=== PATIENT | female | born 1945 | race Caucasian/White ===

== ENCOUNTER → 2017-01-07 | Outpatient (CLI) | payer MEDICARE ==
--- NOTE | 2017-01-08 08:37 | US ---
EXAM DESCRIPTION: Abdominal sonogram CLINICAL HISTORY: 71 y/o F, GENERALIZED ABDOMINAL PAIN COMPARISON: None TECHNIQUE: Grayscale sonogram upper abdomen FINDINGS: Aorta is normal in caliber measuring up to 1.8 cm in diameter proximal. Pancreas is hyperechoic fatty in appearance. No definite focal mass identified. The liver is normal in size 13.9 cm in length. Gallbladder thickness is normal less than 2 mm. No gallstones noted. Common bile duct is normal about 4 mm in diameter. The right kidney is normal in length 9.2 cm. There is cortical thinning and lobulation. No focal mass noted. Spleen is normal in size 8.6 cm in length. Left kidney is 9.9 cm in length which is normal. There is increased echogenicity suggesting a degree of medical renal disease with mild cortical thinning. No focal lesion. IMPRESSION: Cortical thinning in both kidneys with slight increased echogenicity suggesting medical renal disease and scarring No acute intra-abdominal process identified. Electronically signed by: Jet Zamora MD 01/08/2017 08:35
== END | disposition home or self-care (01) ==
LOC: US 13:54
PROVIDERS: ATTEND Nurse Practitioner Family
DX: R10.84 Generalized abdominal pain (principal)

== ENCOUNTER → 2017-01-14 | Outpatient (CLI) | payer MEDICARE | END | disposition home or self-care (01) | LOC: GMAM 10:44 | PROVIDERS: ATTEND Family Medicine | DX: R10.13 Epigastric pain (principal) ==

== ENCOUNTER → 2017-01-20 | Outpatient (CLI) | payer MEDICARE ==
--- NOTE | 2017-01-21 08:28 | CT ---
EXAM DESCRIPTION: Abdomen and pelvis CT. CLINICAL HISTORY: Abdominal pain. COMPARISON: May 16, 2011 TECHNIQUE: Oral contrast was administered and volumetric CT was acquired and displayed in multiplanar reconstructions. Note that the sensitivity of this exam is slightly diminished without contrast. FINDINGS: GI: No dilated bowel, free air, or free fluid. Liver: No suspicious lesion. Biliary: No calcified gallstones. Spleen: Unremarkable. Pancreas: Unremarkable. Adrenal Glands: No significant nodularity. Kidneys: Scarring seen within bilateral upper poles of the kidneys. Bilateral ureters are of normal caliber. No hydronephrosis or urolithiasis. Pelvic organs: Patient is status post hysterectomy. Bones: No suspicious lesion/fracture. Lymph nodes: No enlarged lymph nodes. Lung bases: No significant consolidation or nodularity. Vascular: The abdominal aorta demonstrates atherosclerotic disease, but no aneurysm. IMPRESSION: Today's exam demonstrates no acute findings. No evidence of fatty infiltration of the liver. No renal stones. No inflammatory changes within the abdomen or pelvis. Electronically signed by: Marky Cummings MD 01/21/2017 08:26
== END | disposition home or self-care (01) ==
LOC: CT 09:26
PROVIDERS: ATTEND Internal Medicine Gastroenterology
DX: R74.8 Abnormal levels of other serum enzymes (principal)

== ENCOUNTER → 2017-01-21 | Outpatient (CLI) | payer MEDICARE | END | disposition home or self-care (01) | LOC: GMAM 10:40 | PROVIDERS: ATTEND Family Medicine | DX: R10.13 Epigastric pain (principal) ==

== ENCOUNTER → 2017-05-22 | Outpatient (CLI) | payer MEDICARE ==
--- NOTE | 2017-05-22 10:56 | MAM ---
History: Well woman exam. Date of exam: 05/22/2017 Services provided: Bilateral full field digital screening mammography. CAD, the images were reviewed with R2 computer aided detection. FINDINGS: Glandular tissue is scattered glandular contour. Comparison with 2014 study. No dominant mass, architectural distortion or clustered microcalcification. IMPRESSION: Benign exam Recommendation: Routine annual mammography BIRAD CATEGORY: 2 BENIGN Electronically signed by: Vivian Sanford MD 05/22/2017 10:55 AM CDT Workstation: [id number]
== END ==
LOC: MAMMO 08:39
PROVIDERS: ATTEND Family Medicine
DX: Z12.31 Encounter for screening mammogram for malignant neoplasm of breast (principal)

== ENCOUNTER 2017-06-01 22:33 | Emergency (ER) | payer MEDICARE ==
--- NOTE | 2017-06-01 22:39 | ED.PDOC ---
History of Present Illness - General Chief Complaint: General Stated Complaint: rapid heart beat Time Seen by Provider: 06/01/17 22:37 Source: patient Exam Limitations: no limitations - History of Present Illness Initial Comments: Maureen Bolton 72 y/o female stated that she had rapid heart beat tonight shown by her blood pressure monitor which takes bp/pulse;no chest pains,no sob.She has history of hypertension,no heart disease had nuclear stress test done in the past by her moshgiach about 1 1/2 years ago and was normal. Timing/Duration: 1-3 hours Severity: mild Location: other - no chest pains as claimed by patient but feels rapid heart rate Activities at Onset: rest Prior Chest Pain/Cardiac Workup: no prior chest pain, cardiolye scan Improving Factors: nothing Worsening Factors: nothing Nitro Today/Relief: no nitro taken today Aspirin Treatment Today: 81 mg x 1 Associated Symptoms: denies symptoms, headaches - chronic-had brain imaging in the past-normal Allergies/Adverse Reactions: Allergies Iodine Allergy (Verified 06/01/17 23:00) Pantoprazole [From Protonix] Allergy (Verified 06/01/17 23:00) cedinir Allergy (Uncoded 06/01/17 23:00) Home Medications: Ambulatory Orders Aspirin [Aspirin Childrens] 81 mg PO DAILY 09/18/15 Atorvastatin Calcium [Lipitor] 20 mg PO BEDTIME 09/18/15 Folic Acid 1 mg PO DAILY 09/18/15 Furosemide [Lasix] 20 mg PO PRN PRN 09/18/15 Losartan Potassium & Hydrochlo [Losartan Potassium/Hydroc 50-12.5 mg] 1 tab PO DAILY 09/18/15 Metoprolol Tartrate 25 mg PO BID 09/18/15 Multiple Minerals W/ Vitamins [Citracal Plus] 1 tab PO DAILY 09/18/15 Omeprazole [Prilosec Cap] 20 mg PO DAILY 09/18/15 Probiotic Product [Probiotic] 1 tab PO DAILY 09/18/15 Review of Systems - Review of Systems Constitutional: States: no symptoms reported EENTM: States: no symptoms reported Respiratory: States: no symptoms reported Cardiology: States: see HPI Genitourinary: States: no symptoms reported Musculoskeletal: States: no symptoms reported Skin: States: no symptoms reported Neurological: States: no symptoms reported Endocrine: States: no symptoms reported Hematologic/Lymphatic: States: no symptoms reported Past Medical History (General) - Patient Medical History Hx Congestive Heart Failure: No Hx Hypertension: Yes Hx Diabetes: No Hx Other PMH: Yes - melanoma left big toe Surgical History: other - hysterectomy,breast biopsy - Social History Hx Chewing Tobacco Use: No Hx Alcohol Use: No Hx Substance Use: No Hx Substance Use Treatment: No Hx Depression: No Feels Threatened In Home Enviroment: No Feels Threatened In a Relationship: No - Activities of Daily Living Patient Lives Alone: No - Family Medical History - Family History Father Family History: Unknown Hx Family Cancer: Yes - pancreas-mom;prostate dad Physical Exam - Physical Exam General Appearance: Alert, Anxious, No apparent distress Eyes, Ears, Nose, Throat Exam: PERRL/EOMI, normal ENT inspection, TMs normal Neck: non-tender, full range of motion, supple Respiratory: chest non-tender, lungs clear Cardiovascular/Chest: normal peripheral pulses, regular rate, rhythm, no gallop , no murmur Peripheral Pulses: radial,right: 2+, radial,left: 2+ Gastrointestinal/Abdominal: normal bowel sounds, non tender, soft, no organomegaly, no pulsatile mass Extremity: normal range of motion, non-tender, normal inspection, no pedal edema , no calf tenderness, other - left big toe amputation distal phalanx Neurologic: alert, normal mood/affect, oriented x 3 Skin Exam: normal color, warm/dry Lymphatic: no adenopathy Progress - Progress Progress: 06/02/17 00:07 Vital Signs - 8 hr 06/01/17 06/01/17 06/01/17 22:54 23:04 23:10 Temperature 98.9 F Pulse Rate 68 Pulse Rate [ 66 66 Apical] Respiratory 18 Rate Blood Pressure 137/66 [Left Arm] O2 Sat by Pulse 100 Oximetry 06/01/17 23:53 Temperature Pulse Rate Pulse Rate [ 60 Apical] Respiratory 18 Rate Blood Pressure 142/59 [Left Arm] O2 Sat by Pulse Oximetry 06/02/17 00:46 No rapid heart rate noted while patient in the er;Discuss lab result regarding her slightly elevated bun/creatinine that needs to be followed up with her primary md 06/02/17 00:53 - Results/Orders Results/Orders: 06/02/17 00:15 EKG STAT Laboratory Results - last 24 hr 06/01/17 06/01/17 06/01/17 23:00 23:00 23:00 WBC 10.8 RBC 4.04 L Hgb 11.8 L Hct 35.2 L MCV 87.2 MCH 29.2 MCHC 33.6 RDW 13.3 Plt Count 346 MPV 7.6 Absolute Neuts (auto) 7.70 H Absolute Lymphs (auto) 2.30 Absolute Monos (auto) 0.80 Absolute Eos (auto) 0.00 Absolute Basos (auto) 0.00 Neutrophils % 71.0 Lymphocytes % 21.0 Monocytes % 7.5 Eosinophils % 0.3 L Basophils % 0.2 PT 11.0 INR 0.970 PTT (SP) 24.8 L D-Dimer, Quantitative < 230 Sodium 137 Potassium 3.4 L Chloride 101 Carbon Dioxide 27 Anion Gap 12.4 BUN 43 H Creatinine 1.38 H BUN/Creatinine Ratio 31.2 H Random Glucose 141 H Serum Osmolality 287.0 Calcium 9.3 Magnesium 1.8 Total Bilirubin 0.3 Direct Bilirubin < 0.1 Indirect Bilirubin 0.2 AST 23 ALT 18 Alkaline Phosphatase 110 Creatine Kinase 79 CK-MB (CK-2) 1.6 CK-MB (CK-2) % Not Reportable Troponin I < 0.02 B-Natriuretic Peptide 238.0 H* Serum Total Protein 7.2 Albumin 3.9 TSH 1.52 - EKG/XRAY/CT EKG: Sinus - with pac, no ST T wave changes Comments: heart rate-67 XRAY: chest - no acute abnormalities noted Departure - Departure Clinical Impression: Heart palpitations, Renal insufficiency Time of Disposition: 00:49 Disposition: Discharge to Home or Self Care Condition: Good Instructions: DI for Palpitations, DI for Arrhythmias, Arrhythmias Referrals: Uli Murillo MD [Primary Care Provider] - 1-2 Weeks Home Medications: Ambulatory Orders Aspirin [Aspirin Childrens] 81 mg PO DAILY 09/18/15 Atorvastatin Calcium [Lipitor] 20 mg PO BEDTIME 09/18/15 Folic Acid 1 mg PO DAILY 09/18/15 Furosemide [Lasix] 20 mg PO PRN PRN 09/18/15 Losartan Potassium & Hydrochlo [Losartan Potassium/Hydroc 50-12.5 mg] 1 tab PO DAILY 09/18/15 Metoprolol Tartrate 25 mg PO BID 09/18/15 Multiple Minerals W/ Vitamins [Citracal Plus] 1 tab PO DAILY 09/18/15 Omeprazole [Prilosec Cap] 20 mg PO DAILY 09/18/15 Probiotic Product [Probiotic] 1 tab PO DAILY 09/18/15 Additional Instructions: RETURN TO EMERGENCY ROOM NEEDED;FOLLOW UP WITH PRIMARY MD AND SCIENTIFIC ADVISOR CALL FOR APPOINTMENT
--- NOTE | 2017-06-01 23:07 | RAD ---
EXAM DESCRIPTION: Chest,1 View CLINICAL HISTORY: 72 years Female [id number] chest pain COMPARISON: 09/19/2016 FINDINGS: The cardiomediastinal silhouette appears unremarkable. No consolidating infiltrates or pleural effusions. No pneumothorax. Density adjacent to the left heart border likely reflecting scarring. This is unchanged. Degenerative changes in the spine. IMPRESSION: No acute abnormality is identified. Electronically signed by: Jess Govea 06/01/2017 11:06 PM CDT
[2017-06-02 01:12] VITALS: BP 120/63; TEMP 98.7; O2SAT 99
== END 2017-06-02 01:13 | disposition home or self-care (01) ==
LOC: ER 22:33
DX: R00.2 Palpitations (principal); N28.9 Disorder of kidney and ureter, unspecified; I10 Essential (primary) hypertension; Z85.820 Personal history of malignant melanoma of skin; Z79.82 Long term (current) use of aspirin; Z79.899 Other long term (current) drug therapy; Z88.8 Allergy status to other drugs, medicaments and biological substances

== ENCOUNTER → 2017-06-16 | Outpatient (CLI) | payer MEDICARE ==
--- NOTE | 2017-06-16 17:23 | MRI ---
EXAM DESCRIPTION: Brain w/oContrast CLINICAL HISTORY: HEADACHES COMPARISON: March 22, 2016 TECHNIQUE: Non contrast MRI of the brain is performed according to our usual protocol including multiplanar multi sequence technique. FINDINGS: Very little atrophic changes present but walk moderate coalescent and scattered periventricular and subcortical white matter changes typical of aging and small vessel disease is present in this elderly patient. The changes are slightly more significant on the left and involve the anterior limb of the internal capsule and the possibility of a previous localized area of infarction accounting for any right-sided weakness would be a consideration. The pattern and distribution of the changes is very little changed from prior study. A small normal ventricular system is present. Diffusion imaging shows no evidence of acute or subacute ischemia. Gradient echo imaging demonstrates no evidence of susceptibility artifact or previous hemorrhage. The visualized petrous ridges and upper paranasal sinuses are clear. The sellar and suprasellar regions as well as the brainstem and fourth ventricle are unremarkable. No parenchymal hemorrhage or subdural hematoma or midline shift is seen. IMPRESSION: 1. Very little atrophic change with moderate but stable periventricular white matter changes of aging and small vessel disease with no interval change from study March 22, 2016 2. No evidence of acute restricted diffusion or intracranial hemorrhage or mass effect or subdural hematoma. 3. No acute inflammatory changes in the petrous ridges are upper paranasal sinuses seen. Electronically signed by: Uli Lemos MD 06/16/2017 2:49 PM CDT
== END ==
LOC: MRI 08:50
PROVIDERS: ATTEND Family Medicine
DX: G44.209 Tension-type headache, unspecified, not intractable (principal)

== ENCOUNTER → 2017-10-21 | Outpatient (CLI) | payer MEDICARE ==
--- NOTE | 2017-10-25 13:26 | MRI ---
MRI left ankle without contrast INDICATION: Ankle pain instability anterior and posterior symptoms no specific injury chronic TECHNIQUE: Noncontrast MR imaging left ankle FINDINGS: There is a type II accessory navicular ossification distal posterior tibialis tendon. There is edema along the calcaneofibular ligament which is thickened indicating sprain. Similar changes along the anterior talofibular ligament. No daniel rupture of these ligaments. No disruption of the syndesmosis although there is mild syndesmotic edema. There is superficial edema along the medial and lateral aspects of the ankle especially superficial to the peroneal tendons. No peroneal split rupture or dislocation noted. There is cystic change and edema in the lateral malleolus degenerative in appearance. No rupture of the medial tendons or the anterior tendons. Small Achilles and plantar enthesophytes. Scattered osteoarthritic changes of the ankle and visualized midfoot. There is edema and cystic change in the lateral talar process adjacent to the lateral malleolar edema likely related to lateral impingement/early osteoarthrosis. Mild fluid/cystic change along the dorsum of the talar head. Mild subchondral irregularity medial talus but no unstable osteochondral lesion. Trace subchondral edema and cystic change medial talus indicating overlying grade 4 chondral fissuring. IMPRESSION: Lateral ankle impingement/osteoarthrosis of the talofibular interval Edema along the calcaneofibular and anterior talofibular ligaments indicating mild sprain or reactive edema Subcutaneous edema medial and lateral Minimal chondral fissuring medial talar dome with subchondral cystic change Type II accessory navicular Electronically signed by: Jet Zamora MD 10/25/2017 1:24 PM WATCH LEADER
== END | disposition home or self-care (01) ==
LOC: MRI 13:18
PROVIDERS: ATTEND Family Medicine
DX: M25.572 Pain in left ankle and joints of left foot (principal)

== ENCOUNTER → 2017-11-05 | Outpatient (CLI) | payer MEDICARE | END | disposition home or self-care (01) | LOC: GMA 16:32 | PROVIDERS: ATTEND Physician Assistant | DX: M79.604 Pain in right leg (principal) ==

== ENCOUNTER → 2017-11-07 | Outpatient (CLI) | payer MEDICARE ==
--- NOTE | 2017-11-07 13:23 | US ---
EXAM DESCRIPTION: Venous,Lower Extremity RT: ULTRASOUND. CLINICAL HISTORY: PAIN IN RIGHT LEG. M79.604 COMPARISON: None Available. TECHNIQUE: Two -dimensional and doppler sonographic evaluation of the deep venous system of the right lower extremity. FINDINGS: Doppler evaluation shows normal color flow and normal phasicity and augmentation of the right common femoral vein, femoral vein, popliteal vein, greater saphenous vein, peroneal, and posterior tibial vein. The right lower extremity deep veins showed normal occlusion with transducer pressure. Two-dimensional survey showed no echogenic thrombus within these veins. IMPRESSION: 1. Duplex ultrasound evaluation of the right lower extremity deep venous system showing no evidence of thrombosis or embolism. Electronically signed by: Alon Ogden MD 11/07/2017 1:21 PM DENTAL INSTRUMENT MAKER
== END ==
LOC: US 10:07
PROVIDERS: ATTEND Family Medicine
DX: M79.604 Pain in right leg (principal)

== ENCOUNTER → 2018-01-08 | Outpatient (CLI) | payer MEDICARE ==
--- NOTE | 2018-01-08 09:03 | CT ---
EXAM DESCRIPTION: Abdomen/Pelvis w/o Contrast: Computed Tomography. CLINICAL HISTORY: LLQ PAIN COMPARISON: None. TECHNIQUE: Spiral-axial scans 5.0 mm intervals through the abdomen and pelvis without oral or IV contrast. Coronal and sagittal 2.0 mm reconstructions. Total Exam DLP: 1016.9 mGy-cm. This exam was performed according to our departmental CT dose-optimization program which includes automated exposure control, adjustment of the mA and/or kV according to patient size and/or use of iterative reconstruction technique; to reduce radiation dose to as low as reasonably achievable (ALARA). FINDINGS: Lung bases and pleura: Negative. Liver, stomach, spleen, and adrenal glands: Small hiatal hernia of the stomach. Solid organs are unremarkable. Pancreas, Gallbladder, and Ducts: Gallbladder visualized. Duct not dilated. Pancreas is negative. Kidneys and Ureters: Questionable small calcific deposits in the posterior upper pole collecting system left kidney. Series 2, image 26. No hydronephrosis. Right kidney and ureters unremarkable.. Mesentery: Normal density particularly in the left lower quadrant. No free air or free fluid. No fascial thickening or fatty stranding. Aorta: Minimal atherosclerotic calcification including the ostia of the major vessels originating from the aorta. Calcification also in the left common iliac and left internal iliac. Small Bowel: Minimal gas with no distention. Terminal Ileum/Cecum: Normal caliber of the TI and cecum. Appendix is not seen. Normal density of the surrounding fat. Colon: Normal caliber. No diverticula or complications particularly in the left lower quadrant. Pelvic Organs: Vaginal cuff is unremarkable. Uterus and ovaries not seen. No free fluid. No pelvic masses. No radiodense stones in the urinary bladder. Spine and Bony Pelvis: Decreased bone density. Schmorl's node or compression injury of unknown age superior L5 endplate superior L3 endplate and superior L2 endplate. Dextroscoliosis. Bilateral hip joint space narrowing. Hypertrophic changes of the pubic symphysis. Abdominal Wall/Back Soft Tissues: Minimal diastases at the umbilicus but no bowel protrusion or incarceration. Bilateral small inguinal lymph nodes. IMPRESSION: 1. No mass, abnormal fluid collection, or inflammatory changes in the left lower quadrant of the abdomen. Normal appearance of the included: An small bowel with no obstruction. No free air. 2. Small hiatal hernia in the stomach. 3. Small collection of calcium or small stones upper pole collecting system left kidney. No hydronephrosis. Bilateral ureters and the right kidney unremarkable. No radiodense stones in the urinary bladder. 4. Increased bone density in the spine. Dextroscoliosis lumbar spine and spondylosis with superior endplate abnormalities which could represent Schmorl's nodules and/or compression injuries. Correlate for clinical history. Electronically signed by: Alon Ogden MD 01/08/2018 9:02 AM HEAD COOK
== END ==
LOC: CT 08:00
PROVIDERS: ATTEND Family Medicine
DX: K44.9 Diaphragmatic hernia without obstruction or gangrene (principal); N20.0 Calculus of kidney; M41.86 Other forms of scoliosis, lumbar region; M47.896 Other spondylosis, lumbar region

== ENCOUNTER → 2018-05-14 | Outpatient (CLI) | payer MEDICARE | LOC: GMAJS 14:34 | PROVIDERS: ATTEND Physician Assistant | DX: N39.0 Urinary tract infection, site not specified (principal); M54.5 Low back pain ==

== ENCOUNTER → 2018-05-19 | Outpatient (CLI) | payer MEDICARE | LOC: GMAM 14:28 | PROVIDERS: ATTEND Family Medicine | DX: R10.9 Unspecified abdominal pain (principal); R19.7 Diarrhea, unspecified ==

== ENCOUNTER → 2018-05-20 | Outpatient (CLI) | payer MEDICARE | LOC: LAB.NP 07:06 | PROVIDERS: ATTEND Family Medicine | DX: R10.9 Unspecified abdominal pain (principal); R19.7 Diarrhea, unspecified; K92.1 Melena ==

== ENCOUNTER → 2018-05-21 | Outpatient (CLI) | payer MEDICARE | LOC: GMAM 11:12 | PROVIDERS: ATTEND Family Medicine | DX: R10.9 Unspecified abdominal pain (principal) ==

== ENCOUNTER → 2018-06-02 | Outpatient (CLI) | payer MEDICARE ==
--- NOTE | 2018-06-05 15:50 | MAM ---
EXAM DESCRIPTION: 3D Screening BILATERAL : Digital Mammography. CLINICAL HISTORY: 73 years Female SCREENING . No complaints. Sister with breast cancer. Childbirth. Postmenopausal. Taking HRT 5 or more years ago. Prior left breast benign biopsy.. COMPARISON: 2-D digital screening bilateral study 05/22/2017.. Report from prior examination also reviewed. TECHNIQUE: Bilateral CC and MLO projection full-field images, 3-D tomosynthesis digital mammographic technique. CAD not utilized. FINDINGS: The breast parenchymal density pattern is: Heterogeneously dense breast tissue, which may obscure small masses. No skin thickening or nipple retraction. Bilateral axillary lymph nodes. Bilateral solitary microcalcifications. No new focal, stellate mass or density, focal asymmetry , and no suspicious microcalcifications bilaterally. Stable mammograms compared to prior study, taking into account differences in mammographic technique. IMPRESSION: BI-RADS CATEGORY: 2 - BENIGN FINDINGS. FOLLOW UP: Routine digital bilateral screening, one year interval from May 2018. Written communication explaining the IMPRESSION and follow-up, will be mailed to the patient and referring health care provider. According to the [employer], yearly mammograms are recommended starting at age 40 and continuing as long as a woman is in good health. Any breast change noted on a breast self-exam should be reported promptly to the patient's healthcare provider. Breast MRI is recommended for women with an approximately 20-25% or greater lifetime risk of breast cancer, including women with a strong family history of breast or ovarian cancer and women who have been treated for Hodgkin's disease. A negative mammographic report should not delay tissue diagnosis in patients with significant clinical history or physical findings. Extremely dense breast tissue limits the sensitivity of digital mammography. Electronically signed by: Alon Ogden MD 06/05/2018 3:49 PM CDT
== END ==
LOC: MAMMO 08:30
PROVIDERS: ATTEND Family Medicine
DX: Z12.31 Encounter for screening mammogram for malignant neoplasm of breast (principal)

== ENCOUNTER → 2018-09-15 | Outpatient (CLI) | payer MEDICARE | LOC: GMAM 08:24 | PROVIDERS: ATTEND Family Medicine | DX: E83.52 Hypercalcemia (principal) ==

== ENCOUNTER → 2019-03-26 | Outpatient (CLI) | payer MEDICARE | LOC: GMAM 08:42 | PROVIDERS: ATTEND Family Medicine | DX: E04.9 Nontoxic goiter, unspecified (principal); E83.52 Hypercalcemia ==

== ENCOUNTER → 2019-06-11 | Outpatient (CLI) | payer MEDICARE ==
--- NOTE | 2019-06-14 11:13 | MAM ---
EXAM DESCRIPTION: 3D Screening BILATERAL : Digital Mammography. CLINICAL HISTORY: 74 years Female Screening . No complaints or personal history of breast cancer. Sister with breast cancer. Childbirth. Postmenopausal. HRT 5 or more years ago. Benign left breast biopsy. Lifetime risk of developing breast cancer (Tyrer-Cuzick model)(%): 8.2. COMPARISON: Bilateral screening digital breast tomosynthesis 06/02/2018.. TECHNIQUE: Bilateral CC and MLO projection full-field images, digital tomosynthesis mammographic technique. Bilateral digital 2-D full-field MLO images. CAD not available for tomosynthesis or 2-D images. FINDINGS: The breast parenchymal density pattern is: Scattered areas of fibroglandular density. No skin thickening or nipple retraction. No new focal, stellate mass or density, focal asymmetry , and no suspicious microcalcifications bilaterally. Stable mammograms compared to prior study. IMPRESSION: Negative findings. BI-RADS CATEGORY: 1 - NEGATIVE. FOLLOW UP: Routine digital bilateral screening, one year interval from May 2019. Written communication explaining the findings and follow-up, will be mailed to the patient and referring health care provider. According to the [employer], yearly mammograms are recommended starting at age 40 and continuing as long as a woman is in good health. Any breast change noted on a breast self-exam should be reported promptly to the patient's healthcare provider. Breast MRI is recommended for women with an approximately 20-25% or greater lifetime risk of breast cancer, including women with a strong family history of breast or ovarian cancer and women who have been treated for Hodgkin's disease. A negative mammographic report should not delay tissue diagnosis in patients with significant clinical history or physical findings. Extremely dense breast tissue limits the sensitivity of digital mammography. Electronically signed by: Alon Ogden MD 06/14/2019 11:11 AM CDT
== END ==
LOC: MAMMO 09:00
PROVIDERS: ATTEND Family Medicine
DX: Z12.31 Encounter for screening mammogram for malignant neoplasm of breast (principal); E04.9 Nontoxic goiter, unspecified; I10 Essential (primary) hypertension

== ENCOUNTER → 2019-10-06 | Outpatient (CLI) | payer MEDICARE | LOC: LAB.O 08:43 | PROVIDERS: ATTEND Nurse Practitioner Family | DX: R19.7 Diarrhea, unspecified (principal) ==

== ENCOUNTER → 2019-10-08 | Outpatient (CLI) | payer MEDICARE | LOC: GMAM 08:25 | PROVIDERS: ATTEND Family Medicine | DX: E04.9 Nontoxic goiter, unspecified (principal); I10 Essential (primary) hypertension; E83.52 Hypercalcemia ==

== ENCOUNTER → 2019-10-26 | Outpatient (CLI) | payer MEDICARE ==
--- NOTE | 2019-10-26 12:15 | US ---
EXAM DESCRIPTION: Gall Bladder: ULTRASOUND. CLINICAL HISTORY: EPIGASTRIC PN COMPARISON: CT abdomen January 2018. TECHNIQUE: Transabdominal scanning: Isbell-scale and Doppler modes. FINDINGS: Gallbladder: normal size, shape, echogenicity; no intraluminal stones or sludge. No fluid around the gallbladder. No wall thickening. mm Non-tender with transducer pressure. Common bile duct: caliber 3.2 mm within normal limits. Liver: normal echogenicity; contour liver capsule smooth where seen. No fluid around the liver. Intrahepatic biliary ducts normal caliber. Doppler hepatopedal flow portal vein.. Long axis right lobe 12.6 cm. Pancreas: normal size and echogenicity. Duct not seen. Aorta: XXXX 1.6 cm normal caliber. Right kidney: 9.8 cm long axis. Moderate cortical thinning with cortical echogenicity similar to the liver. No echogenic stones or hydronephrosis.. IMPRESSION: Normal ultrasound of the right upper quadrant of the abdomen, with no gallstones or duct dilation. No ascites. Electronically signed by: Alon Ogden MD 10/26/2019 12:13 PM HOUSEKEEPING MANAGER
== END ==
LOC: US 10:51
PROVIDERS: ATTEND Physician Assistant
DX: R10.13 Epigastric pain (principal)

== ENCOUNTER → 2019-11-03 | Outpatient (CLI) | payer MEDICARE | LOC: GMAM 14:20 | PROVIDERS: ATTEND Family Medicine | DX: R79.9 Abnormal finding of blood chemistry, unspecified (principal) ==

== ENCOUNTER → 2019-11-11 | Outpatient (CLI) | payer MEDICARE | LOC: GMAM 10:42 | PROVIDERS: ATTEND Family Medicine | DX: R79.9 Abnormal finding of blood chemistry, unspecified (principal) ==

== ENCOUNTER → 2019-11-15 | Outpatient (CLI) | payer MEDICARE | LOC: GMAM 09:37 | PROVIDERS: ATTEND Family Medicine | DX: R94.5 Abnormal results of liver function studies (principal); R79.9 Abnormal finding of blood chemistry, unspecified; R07.89 Other chest pain ==

== ENCOUNTER → 2019-11-17 | Outpatient (CLI) | payer MEDICARE ==
--- NOTE | 2019-11-17 17:04 | CT ---
EXAM DESCRIPTION: Abdoment/Pelvis w/o Contrast CLINICAL HISTORY: 74 years Female, MIDEPIGASTRIC ABDOMINAL PAIN COMPARISON: CT abdomen pelvis dated 01/08/2018. TECHNIQUE: Contiguous 3 mm axial images were obtained from the lung bases to the level of proximal femora without the administration of intravenous or oral contrast. Sagittal and coronal reconstructions were reviewed. This exam was performed according to our departmental dose-optimization program, which includes automated exposure control, adjustment of the mA and/or kV according to patient size and/or use of iterative reconstruction technique. FINDINGS: Mild atelectasis is noted in the lingula. Imaged lower thorax otherwise appears normal. Limited evaluation of the solid organs due to the lack of intravenous contrast. However grossly the liver, gallbladder, pancreas and spleen appear normal. No adrenal nodules or masses. Right kidney appears grossly unremarkable. 9 mm hyperdense focus is noted in the upper pole of the left kidney. This is indeterminate in etiology. Small hiatal hernia. The stomach is not well-distended limiting detailed evaluation. The small bowel loops appear normal. Few diverticuli are noted throughout the visualized colon. The distal transverse and proximal descending colon is not well-distended limiting evaluation. The urinary bladder is mildly distended with no gross abnormality. Uterus is surgically absent. Bilateral adnexa appear appropriate for patient's age. Mild atherosclerotic disease of the visualized aorta. Inferior vena cava is normal in size and caliber. No abnormally enlarged lymph nodes are noted in the retroperitoneum and mesentery. Moderate degenerative changes identified throughout the visualized spine. Superior endplate compression of L5 vertebral body is most likely chronic in nature. IMPRESSION: 1. No acute intra-abdominal or intrapelvic process. 2. Indeterminate 9 mm hypodense focus is noted in the upper pole of the left kidney. 3. Colonic diverticulosis. Electronically signed by: Tone Mayorga MD 11/17/2019 5:03 PM [employer]
== END ==
LOC: CT 08:00
PROVIDERS: ATTEND Family Medicine
DX: K57.30 Diverticulosis of large intestine without perforation or abscess without bleeding (principal); N28.9 Disorder of kidney and ureter, unspecified

== ENCOUNTER 2019-11-30 23:40 | Emergency (ER) | payer MEDICARE ==
[2019-11-30 23:48] VITALS: TEMP 97.7
--- NOTE | 2019-11-30 23:50 | ED.PDOC ---
History of Present Illness - General Chief Complaint: Chest Pain/DE Stated Complaint: chest pain Time Seen by Provider: 11/30/19 23:40 Source: patient, family Exam Limitations: no limitations - History of Present Illness Initial Comments: 74 F +PMH HTN and AFib presents with spouse to ED c/o acute onset of left sided non-radiating non-exertional CP that began ~30 minute prior to arrival. Pt describes CP as sharp and pressure under her left breast. Denies h/o similar sx's. Denies associated SOB, diaphoresis, headache, n/v/d, f/c, and/or acute changes in urination. Denies h/o blood clots, no recent surgeries/trauma, no h/o cancer, no recent prolonged periods of rest, no exogenous hormones. She denies any other complaints at this time. Allergies/Adverse Reactions: Allergies Iodine Allergy (Verified 06/01/17 23:00) Pantoprazole [From Protonix] Allergy (Verified 06/01/17 23:00) cedinir Allergy (Uncoded 06/01/17 23:00) Home Medications: Ambulatory Orders Aspirin [Aspirin Childrens] 81 mg PO DAILY 09/18/15 Furosemide [Lasix] 20 mg PO PRN PRN 09/18/15 Losartan Potassium & Hydrochlo [Losartan Potassium/Hydroc 50-12.5 mg] 1 tab PO DAILY 09/18/15 Metoprolol Tartrate 25 mg PO BID 09/18/15 Multiple Minerals W/ Vitamins [Citracal Plus] 1 tab PO DAILY 09/18/15 Omeprazole [Prilosec Cap] 20 mg PO DAILY 09/18/15 Probiotic Product [Probiotic] 1 tab PO DAILY 09/18/15 Apixaban [Eliquis] 5 mg BID 11/30/19 Review of Systems - Review of Systems Constitutional: Denies: chills, fever EENTM: Denies: blurred vision, throat pain Respiratory: Denies: cough, short of breath Cardiology: States: chest pain, edema - chronic lymphedema with no acute changes per pt. Denies: palpitations Gastrointestinal/Abdominal: States: vomiting. Denies: abdominal pain, diarrhea, nausea Genitourinary: Denies: dysuria, frequency Musculoskeletal: Denies: back pain, neck pain Skin: States: change in color. Denies: rash Neurological: States: other - no dizziness. Denies: headache Hematologic/Lymphatic: Denies: blood clots Past Medical History (General) - Patient Medical History Hx Congestive Heart Failure: No Hx Hypertension: Yes Hx Diabetes: No Hx Gastroesophageal Reflux: Yes Hx Cancer: Yes - melanoma-toe Hx MRSA: No - Vaccination History Hx Influenza Vaccination: Yes Hx Pneumococcal Vaccination: Yes - Social History Hx Chewing Tobacco Use: No Hx Alcohol Use: No Hx Substance Use: No Hx Substance Use Treatment: No Hx Depression: No Family Medical History - Family History Father Family History: Unknown Hx Family Cancer: Yes - pancreas-mom;prostate dad Physical Exam - Physical Exam General Appearance: Alert, Obvious distress, Well Developed, Well Nourished Eyes, Ears, Nose, Throat Exam: PERRL/EOMI Neck: supple, normal inspection, other - no jvd Respiratory: chest non-tender, lungs clear, normal breath sounds, no accessory muscle use Cardiovascular/Chest: normal peripheral pulses, regular rate, rhythm, no edema, no gallop, no JVD, no murmur Gastrointestinal/Abdominal: normal bowel sounds, non tender, soft Extremity: normal inspection, no pedal edema, other - + BLE lymphedema, no pitting edema, symmetric Neurologic: alert, normal mood/affect, oriented x 3 Skin Exam: normal color, warm/dry, other - no rash Progress - Progress Progress: Presents with concern for ACS. I will evaluate labs, imaging, EKG, provide appropriate pharmacotherapy along with Morphine and Aspirin, and continue to monitor/reassess. Disposition will depend on workup findings and pt's overall course in ED. 02:19 Rechecked pt with at bedside. VSS, NAD, and CP nearly resolved and greatly improved. I have discussed ED workup results, my clinical impression, and diagnosis. I have also discussed discharge home, f/u, medication management, and ED return precautions. Pt and voice understanding, agree with plan, and all questions answered. - Results/Orders Results/Orders: EKG @2351: ED physician read @2352: NSR 68 with artifact, nl axis, borderline QTc 478, MS and QRS wnl, no ST elevations/depressions, nonspecific ST/T-wave changes. No STEMI. Compared with 06/01/2017 EKG: no acute changes when compared concerning for acute ischemia. Laboratory Tests 11/30/19 11/30/19 11/30/19 23:46 23:46 23:46 WBC 9.1 RBC 3.72 L Hgb 10.5 L Hct 32.8 L MCV 88.1 MCH 28.3 MCHC 32.1 L RDW 13.2 Plt Count 309 MPV 7.6 Absolute Neuts (auto) 5.20 Absolute Lymphs (auto) 2.80 Absolute Monos (auto) 0.80 Absolute Eos (auto) 0.20 Absolute Basos (auto) 0.00 Neutrophils % 57.3 Lymphocytes % 31.0 Monocytes % 8.7 Eosinophils % 2.6 Basophils % 0.4 D-Dimer, Quantitative 0.36 Sodium 138 Potassium 4.2 Chloride 100 L Carbon Dioxide 26 Anion Gap 16.2 BUN 29 H Creatinine 1.36 H BUN/Creatinine Ratio 21.3 H Random Glucose 103 Serum Osmolality 281.8 Calcium 9.3 Total Bilirubin 0.4 AST 23 ALT 12 Alkaline Phosphatase 95 Troponin I Serum Total Protein 7.4 Albumin 3.8 Globulin 3.6 H Albumin/Globulin Ratio 1.1 11/30/19 12/01/19 23:46 01:45 WBC RBC Hgb Hct MCV MCH MCHC RDW Plt Count MPV Absolute Neuts (auto) Absolute Lymphs (auto) Absolute Monos (auto) Absolute Eos (auto) Absolute Basos (auto) Neutrophils % Lymphocytes % Monocytes % Eosinophils % Basophils % D-Dimer, Quantitative Sodium Potassium Chloride Carbon Dioxide Anion Gap BUN Creatinine BUN/Creatinine Ratio Random Glucose Serum Osmolality Calcium Total Bilirubin AST ALT Alkaline Phosphatase Troponin I 0.02 < 0.02 Serum Total Protein Albumin Globulin Albumin/Globulin Ratio EXAM DESCRIPTION: XR Chest,2 Views CLINICAL HISTORY: CP TECHNIQUE: Two views of the chest are submitted. COMPARISON: None available for comparison FINDINGS: Heart: The cardiothoracic silhouette is within normal limits. Lungs: Hyperinflation and coarsened interstitial markings. No focal consolidation. Mediastinum: Thoracic aortic atherosclerosis. Pleura: No appreciable effusion. No pneumothorax. Bones: Multilevel spondylosis. No acute fracture. Upper abdomen: Unremarkable IMPRESSION: No acute disease. Electronically signed by: Sheila Soto MD 12/01/2019 12:28 AM [employer] Departure - Departure Clinical Impression: Pleuritic chest pain Time of Disposition: 02:16 Disposition: Discharge to Home or Self Care Condition: Fair Departure Forms: ED Discharge - Pt. Copy, Patient Portal Self Enrollment Instructions: DI for Chest Pain Diet: resume usual diet Referrals: Uli Murillo MD [Primary Care Provider] - 1-2 Days Your, Metal Control Coordinator [Other] - 1-5 Days (Follow up appointment with your leather goods assembler in 3-5 days. Discuss outpatient stress test.) Home Medications: Ambulatory Orders Aspirin [Aspirin Childrens] 81 mg PO DAILY 09/18/15 Furosemide [Lasix] 20 mg PO PRN PRN 09/18/15 Losartan Potassium & Hydrochlo [Losartan Potassium/Hydroc 50-12.5 mg] 1 tab PO DAILY 09/18/15 Metoprolol Tartrate 25 mg PO BID 09/18/15 Multiple Minerals W/ Vitamins [Citracal Plus] 1 tab PO DAILY 09/18/15 Omeprazole [Prilosec Cap] 20 mg PO DAILY 09/18/15 Probiotic Product [Probiotic] 1 tab PO DAILY 09/18/15 Apixaban [Eliquis] 5 mg BID 11/30/19
[2019-12-01] MEDS: ASPIRIN TABLET 325 MG TAB PO ONE (00:01)
[2019-12-01] MEDS: MORPHINE SULFATE INJ 10 MG/ML VIAL IV ONE (00:01)
--- NOTE | 2019-12-01 00:30 | RAD ---
EXAM DESCRIPTION: XR Chest,2 Views CLINICAL HISTORY: CP TECHNIQUE: Two views of the chest are submitted. COMPARISON: None available for comparison FINDINGS: Heart: The cardiothoracic silhouette is within normal limits. Lungs: Hyperinflation and coarsened interstitial markings. No focal consolidation. Mediastinum: Thoracic aortic atherosclerosis. Pleura: No appreciable effusion. No pneumothorax. Bones: Multilevel spondylosis. No acute fracture. Upper abdomen: Unremarkable IMPRESSION: No acute disease. Electronically signed by: Sheila Soto MD 12/01/2019 12:28 AM [facility]
[2019-12-01 00:51] VITALS: O2SAT 99
[2019-12-01] MEDS: KETOROLAC TROMETHAMINE INJ 30 MG/ML VIAL IV ONE (01:09)
[2019-12-01 02:25] VITALS: BP 135/60
== END 2019-11-30 23:59 | disposition short-term general hospital (02) ==
LOC: ER 23:40
DX: R07.1 Chest pain on breathing (principal); I10 Essential (primary) hypertension; K21.9 Gastro-esophageal reflux disease without esophagitis; I89.0 Lymphedema, not elsewhere classified; I48.91 Unspecified atrial fibrillation; Z85.820 Personal history of malignant melanoma of skin; Z79.01 Long term (current) use of anticoagulants; Z79.82 Long term (current) use of aspirin; Z79.899 Other long term (current) drug therapy; Z91.041 Radiographic dye allergy status; Z88.8 Allergy status to other drugs, medicaments and biological substances
CPT/HCPCS: 36415; 71046; 80053; 84484; 85025; 85379; 96374; 96375; 99284; J2270

== ENCOUNTER 2019-12-01 | Emergency (ER) | payer MEDICARE | END 2019-12-01 02:25 | disposition home or self-care (01) | LOC: ER | DX: R07.1 Chest pain on breathing (principal); I10 Essential (primary) hypertension; K21.9 Gastro-esophageal reflux disease without esophagitis; I89.0 Lymphedema, not elsewhere classified; I48.91 Unspecified atrial fibrillation; Z85.820 Personal history of malignant melanoma of skin; Z79.01 Long term (current) use of anticoagulants; Z79.82 Long term (current) use of aspirin; Z79.899 Other long term (current) drug therapy; Z91.041 Radiographic dye allergy status; Z88.8 Allergy status to other drugs, medicaments and biological substances | CPT/HCPCS: 84484; 93005; J1885 ==

== ENCOUNTER → 2020-03-24 | Outpatient (CLI) | payer MEDICARE ==
--- NOTE | 2020-03-24 13:03 | MRI ---
CLINICAL HISTORY PROVIDED: ABNORMAL RESULTS OF KIDNEY FUNCTION STUDIES TECHNIQUE: Multiplanar, multisequence MR images of the abdomen. Images were obtained before and after the use of IV contrast. COMPARISON: 11/17/2019 FINDINGS: Visualized lung bases are unremarkable. Normal hepatic parenchymal signal and morphology. No suspicious hepatic lesion. No biliary dilatation. Gallbladder is unremarkable. The portal vein is patent. The spleen, pancreas and adrenal glands are unremarkable. Symmetric renal parenchymal enhancement. Simple bilateral renal cysts. No suspicious enhancing renal lesion identified. No hydronephrosis. The previously described hyperdense left renal lesion demonstrates low T2 signal and increased T1 signal with no appreciable enhancement measuring 9 mm series 501 image 23. This is a completely intrarenal lesion. No adenopathy. No focal fluid collection. No evidence of bowel obstruction. Normal caliber abdominal aorta. No focal marrow signal abnormality. IMPRESSION: Left intrarenal lesion measuring 9 mm with signal characteristics that suggest a hemorrhagic/proteinaceous cyst. Electronically signed by: Scotty Durham MD 03/24/2020 1:01 PM CDT
== END ==
LOC: MRI 07:58
PROVIDERS: ATTEND Family Medicine
DX: Z01.812 Encounter for preprocedural laboratory examination (principal); R94.4 Abnormal results of kidney function studies; N28.9 Disorder of kidney and ureter, unspecified

== ENCOUNTER 2020-03-31 12:42 | Emergency (ER) | payer MEDICARE ==
--- NOTE | 2020-03-31 13:58 | RAD ---
EXAM DESCRIPTION: Abdomen Series CLINICAL HISTORY: left upper abd pain, chronic gi bleed COMPARISON: None. FINDINGS: AP supine and upright views of the abdomen show a nonspecific, nonobstructive bowel gas pattern with no evidence for free intraperitoneal air. No air-filled dilated loops of small bowel are seen. No significant air-fluid levels are identified. No obvious organomegaly is seen. No abnormal calcifications are seen in the expected location of the renal collecting systems. Single view of the chest shows mild enlargement of cardiac silhouette without pulmonary vasculature congestion. Lungs are normally aerated and clear. Moderate dextrocurvature and spondylitic changes of the lumbar spine are seen. IMPRESSION: Nonspecific abdominal series Electronically signed by: Todd Dang MD 03/31/2020 1:57 PM CDT
[2020-03-31] MEDS ORDERED: ALUM & MAG HYDROX-SIMETHICONE 30 ML, LIDOCAINE VISCOUS 2% 15 ML PO ONE ×2 (14:00)
[2020-03-31] MEDS ORDERED: SUCRALFATE 1 GM/10 ML 1 GM UD PO ONE (14:00)
[2020-03-31] MEDS ORDERED: LIDOCAINE HCL 2% (MOUTH-THROAT) 15 ML UD ONE (14:27)
[2020-03-31] MEDS ORDERED: ALUM & MAG HYDROX-SIMETHICONE 30 ML UD ONE (14:27)
--- NOTE | 2020-03-31 15:27 | ED.PDOC ---
History of Present Illness - General Chief Complaint: Abdominal Pain Stated Complaint: Left Abdominal Pain Time Seen by Provider: 03/31/20 12:43 Source: patient Exam Limitations: no limitations - History of Present Illness Initial Comments: The patient is a 75-year-old female presented emergency room secondary to left upper and epigastric discomfort starting this morning. The patient is already very nervous due to a MRI for a cyst on her left kidney. No fevers. No nausea or vomiting. No constipation. She does have known diverticuli. No diarrhea. No significant constipation. No chest pain or shortness of breath. No palpitations. Pain is a little worse with palpation in the area. No nausea or vomiting. She does have a longstanding history of gastritis and reflux. Timing/Duration: 4-6 hours Severity: mild Improving Factors: nothing Worsening Factors: other - Palpation Associated Symptoms: denies symptoms Allergies/Adverse Reactions: Allergies Iodine Allergy (Verified 06/01/17 23:00) Pantoprazole [From Protonix] Allergy (Verified 06/01/17 23:00) cedinir Allergy (Uncoded 06/01/17 23:00) Home Medications: Ambulatory Orders Aspirin [Aspirin Childrens] 81 mg PO DAILY 09/18/15 Furosemide [Lasix] 20 mg PO PRN PRN 09/18/15 Losartan Potassium & Hydrochlo [Losartan Potassium/Hydroc 50-12.5 mg] 1 tab PO DAILY 09/18/15 Metoprolol Tartrate 25 mg PO BID 09/18/15 Multiple Minerals W/ Vitamins [Citracal Plus] 1 tab PO DAILY 09/18/15 Omeprazole [Prilosec Cap] 20 mg PO DAILY 09/18/15 Probiotic Product [Probiotic] 1 tab PO DAILY 09/18/15 Apixaban [Eliquis] 5 mg BID 11/30/19 Sucralfate Tab [Carafate Tab] 1 gm PO QID #120 tab 03/31/20 Review of Systems - Review of Systems Constitutional: States: no symptoms reported EENTM: States: no symptoms reported Respiratory: States: no symptoms reported Cardiology: States: no symptoms reported Gastrointestinal/Abdominal: States: see HPI Genitourinary: States: no symptoms reported Musculoskeletal: States: no symptoms reported Skin: States: no symptoms reported Neurological: States: anxiety Endocrine: States: no symptoms reported All other Systems: No Change from Baseline Past Medical History (General) - Patient Medical History Hx Asthma: No Hx Cardiac Disorders: Yes - A fib Hx Congestive Heart Failure: No Hx Hypertension: Yes Hx Diabetes: No Hx Gastroesophageal Reflux: Yes Hx Cancer: Yes - melanoma-toe Hx MRSA: No - Vaccination History Hx Influenza Vaccination: Yes Hx Pneumococcal Vaccination: Yes - Social History Hx Tobacco Use: No Hx Chewing Tobacco Use: No Hx Alcohol Use: No Hx Substance Use: No Hx Substance Use Treatment: No Hx Depression: No - Female History Patient is a Female of Child Bearing Age (10 -59 yrs old): No Family Medical History - Family History Father Family History: Unknown Hx Family Cancer: Yes - pancreas-mom;prostate dad Physical Exam - Physical Exam General Appearance: Alert, Anxious, No apparent distress Eye Exam: bilateral normal Ears, Nose, Throat: hearing grossly normal, normal ENT inspection Neck: full range of motion, supple Respiratory: lungs clear, normal breath sounds, no respiratory distress, no accessory muscle use Cardiovascular/Chest: normal peripheral pulses, regular rate, rhythm, no edema Peripheral Pulses: radial,right: 2+, radial,left: 2+ Gastrointestinal/Abdominal: soft, other - Epigastric and left upper quadrant discomfort to palpation. No rebound or peritoneal signs. No guarding. Rectal Exam: deferred Back Exam: no CVA tenderness, no vertebral tenderness Extremity: normal range of motion, non-tender, normal inspection, no pedal edema, normal capillary refill Neurologic: finish off operator II-XII nml as tested, alert, oriented x 3, other - Very anxious. Skin Exam: normal color Comments: Vital Signs - 24 hr 03/31/20 03/31/20 13:09 13:37 Temperature 98.6 F Pulse Rate [ 64 pulse ox] Respiratory 18 18 Rate Blood Pressure 157/69 [Left Arm] O2 Sat by Pulse 100 Oximetry Progress - Progress Progress: 03/31/20 15:27 The patient is a 75-year-old female presented emergency room secondary to left upper quadrant and epigastric discomfort since this morning. X-ray and laboratory work are reassuring. This is most likely gastritis and duodenitis given her history. The patient is to continue her omeprazole. I am going to add Carafate 4 times daily for the next month. I do want her to follow back up with her primary care doctor around Friday for repeat evaluation. Keep well- hydrated. Maintain a bland diet. ER warnings are given for any significant worsening. [email or web address] - Results/Orders Results/Orders: X-ray fails to show acute pathology. Laboratory Results - last 24 hr 03/31/20 03/31/20 03/31/20 13:35 13:40 13:40 WBC 8.2 RBC 4.06 L Hgb 10.5 L Hct 32.0 L MCV 78.9 L MCH 25.9 L MCHC 32.8 L RDW 17.7 H Plt Count 379 MPV 7.3 L Absolute Neuts (auto) 5.70 Absolute Lymphs (auto) 1.80 Absolute Monos (auto) 0.60 Absolute Eos (auto) 0.10 Absolute Basos (auto) 0.10 Neutrophils % 69.1 Lymphocytes % 21.6 Monocytes % 7.2 Eosinophils % 1.3 Basophils % 0.8 PT INR PTT (SP) Sodium 136 Potassium 4.2 Chloride 104 Carbon Dioxide 25 Anion Gap 11.2 L BUN 24 H Creatinine 1.23 BUN/Creatinine Ratio 19.5 Random Glucose 127 H Serum Osmolality 277.6 Lactic Acid Calcium 9.5 Magnesium 1.7 L Total Bilirubin 0.6 AST 26 ALT 16 Alkaline Phosphatase 89 Creatine Kinase 132 CK-MB (CK-2) 1.2 CK-MB (CK-2) % Not Reportable Troponin I < 0.02 Serum Total Protein 7.6 Albumin 4.1 Globulin 3.5 Albumin/Globulin Ratio 1.2 Amylase 96 Lipase 66 H Urine Color Yellow Urine Appearance Clear Urine pH 7.0 Ur Specific [place] 1.010 Urine Protein Negative Urine Glucose (UA) Negative Urine Ketones Negative Urine Blood Trace-intact H Urine Nitrite Negative Urine Bilirubin Negative Urine Urobilinogen 0.2 Ur Leukocyte Esterase Negative Urine RBC 0-1 Urine WBC 0 Ur Epithelial Cells 3-5 Urine Bacteria Rare 03/31/20 03/31/20 13:40 13:40 WBC RBC Hgb Hct MCV MCH MCHC RDW Plt Count MPV Absolute Neuts (auto) Absolute Lymphs (auto) Absolute Monos (auto) Absolute Eos (auto) Absolute Basos (auto) Neutrophils % Lymphocytes % Monocytes % Eosinophils % Basophils % PT 11.9 H INR 1.20 H PTT (SP) 27.4 Sodium Potassium Chloride Carbon Dioxide Anion Gap BUN Creatinine BUN/Creatinine Ratio Random Glucose Serum Osmolality Lactic Acid 1.2 Calcium Magnesium Total Bilirubin AST ALT Alkaline Phosphatase Creatine Kinase CK-MB (CK-2) CK-MB (CK-2) % Troponin I Serum Total Protein Albumin Globulin Albumin/Globulin Ratio Amylase Lipase Urine Color Urine Appearance Urine pH Ur Specific [place] Urine Protein Urine Glucose (UA) Urine Ketones Urine Blood Urine Nitrite Urine Bilirubin Urine Urobilinogen Ur Leukocyte Esterase Urine RBC Urine WBC Ur Epithelial Cells Urine Bacteria Departure - Departure Clinical Impression: Gastritis Qualifiers: Gastritis type: unspecified gastritis Chronicity: chronic Gastritis bleeding: without bleeding Qualified Code(s): K29.50 - Unspecified chronic gastritis without bleeding Disposition: Discharge to Home or Self Care Condition: Fair Departure Forms: ED Discharge - Pt. Copy, Patient Portal Self Enrollment Instructions: Gastritis (DC) Diet: bland diet Activity: increase activity as tolerated Referrals: Uli Murillo MD [Primary Care Provider] - 1-2 Weeks Prescriptions: Sucralfate Tab [Carafate Tab] 1 gm PO QID #120 tab Home Medications: Ambulatory Orders Aspirin [Aspirin Childrens] 81 mg PO DAILY 09/18/15 Furosemide [Lasix] 20 mg PO PRN PRN 09/18/15 Losartan Potassium & Hydrochlo [Losartan Potassium/Hydroc 50-12.5 mg] 1 tab PO DAILY 09/18/15 Metoprolol Tartrate 25 mg PO BID 09/18/15 Multiple Minerals W/ Vitamins [Citracal Plus] 1 tab PO DAILY 09/18/15 Omeprazole [Prilosec Cap] 20 mg PO DAILY 09/18/15 Probiotic Product [Probiotic] 1 tab PO DAILY 09/18/15 Apixaban [Eliquis] 5 mg BID 11/30/19 Sucralfate Tab [Carafate Tab] 1 gm PO QID #120 tab 03/31/20 Additional Instructions: The patient is a 75-year-old female presented emergency room secondary to left upper quadrant and epigastric discomfort since this morning. X-ray and laboratory work are reassuring. This is most likely gastritis and duodenitis given her history. The patient is to continue her omeprazole. I am going to add Carafate 4 times daily for the next month. I do want her to follow back up with her primary care doctor around Friday for repeat evaluation. Keep well- hydrated. Maintain a bland diet. ER warnings are given for any significant worsening.
[2020-03-31 15:39] VITALS: BP 103/84; TEMP 97; O2SAT 100
== END 2020-03-31 15:39 | disposition home or self-care (01) ==
LOC: ER 12:42
DX: K29.50 Unspecified chronic gastritis without bleeding (principal); I48.91 Unspecified atrial fibrillation; I10 Essential (primary) hypertension

== ENCOUNTER → 2020-04-05 | Outpatient (CLI) | payer MEDICARE | LOC: GMAM 14:43 | PROVIDERS: ATTEND Family Medicine | DX: E83.42 Hypomagnesemia (principal); D64.9 Anemia, unspecified ==

== ENCOUNTER → 2020-05-04 | Outpatient (CLI) | payer MEDICARE | LOC: GMAM 16:44 | PROVIDERS: ATTEND Family Medicine | DX: E53.8 Deficiency of other specified B group vitamins (principal); R71.8 Other abnormality of red blood cells ==

== ENCOUNTER → 2020-05-30 | Outpatient (CLI) | payer MEDICARE | LOC: CANPRECLI → GMAM 17:45 | PROVIDERS: ATTEND Family Medicine | DX: E83.42 Hypomagnesemia (principal); K29.50 Unspecified chronic gastritis without bleeding; D64.9 Anemia, unspecified ==

== ENCOUNTER → 2020-07-05 | Outpatient (CLI) | payer MEDICARE ==
--- NOTE | 2020-07-10 12:42 | MAM ---
EXAM DESCRIPTION: 3D Screening BILATERAL : Digital Mammography. CLINICAL HISTORY: 75 years Female ANNUAL SCREENING . No complaints. Female sibling with breast cancer at unknown age. Menarche age 11. Childbirth age 23. Menopause age unknown. HRT 5 or more years ago.. Lifetime risk of developing breast cancer (Tyrer-Cuzick model)(%): 8.2. COMPARISON: Bilateral screening digital breast tomosynthesis May 2019 and May 2018. TECHNIQUE: Bilateral CC and MLO projection full-field images, digital tomosynthesis mammographic technique. Bilateral digital 2-D full-field MLO images. CAD available for 2-D images. FINDINGS: The breast parenchymal density pattern is: Scattered areas of fibroglandular density. No skin thickening or nipple retraction. Solitary microcalcifications. Vascular calcifications. Left axillary lymph nodes. No new focal, stellate mass or density, focal asymmetry , and no suspicious microcalcifications bilaterally. Stable mammograms compared to prior study. IMPRESSION: Benign exam. BIRAD CATEGORY: 2 BENIGN FINDINGS. RECOMMENDATIONS: FOLLOW UP: Routine digital bilateral mammographic screening, one year interval from July 2020. Written communication explaining the IMPRESSION and follow-up, will be mailed to the patient and referring health care provider. According to the [employer], yearly mammograms are recommended starting at age 40 and continuing as long as a woman is in good health. Any breast change noted on a breast self-exam should be reported promptly to the patient's healthcare provider. Breast MRI is recommended for women with an approximately 20-25% or greater lifetime risk of breast cancer, including women with a strong family history of breast or ovarian cancer and women who have been treated for Hodgkin's disease. A negative mammographic report should not delay tissue diagnosis in patients with significant clinical history or physical findings. Extremely dense breast tissue limits the sensitivity of digital mammography. Electronically signed by: Alon Ogden MD 07/10/2020 12:40 PM CDT
== END ==
LOC: MAMMO 09:54
PROVIDERS: ATTEND Family Medicine
DX: Z12.31 Encounter for screening mammogram for malignant neoplasm of breast (principal)

== ENCOUNTER → 2020-08-30 | Outpatient (CLI) | payer MEDICARE | LOC: GMAM 10:51 | PROVIDERS: ATTEND Family Medicine | DX: D64.9 Anemia, unspecified (principal) ==

== ENCOUNTER 2020-09-07 09:07 | Emergency (ER) | payer MEDICARE ==
[2020-09-07] MEDS ORDERED: SODIUM CHLORIDE 0.9% (FLUSH) 10 ML SYG IV PRN (09:16)
[2020-09-07] MEDS ORDERED: LABETALOL INJ 5 MG/ML VIAL IV ONE (09:30)
--- NOTE | 2020-09-07 09:36 | RAD ---
EXAM DESCRIPTION: Chest,1 View CLINICAL HISTORY: 75 years Female, chest pain COMPARISON: November 30, 2019 TECHNIQUE: AP portable chest. FINDINGS: Fair expansion of the lungs is evident without consolidation, layering effusion, or large mass. Mildly elevated right hemidiaphragm incidentally noted. Mild cardiomegaly with tortuous aortic arch with upper normal vascularity. No gross bony, hilar, or mediastinal abnormalities are noted. IMPRESSION: No acute cardiopulmonary disease. Electronically signed by: Uli Lemos MD 09/07/2020 9:34 AM CDT
[2020-09-07 10:37] VITALS: O2SAT 98
--- NOTE | 2020-09-07 11:18 | ED.PDOC ---
History of Present Illness - General Chief Complaint: Chest Pain/IN Stated Complaint: chest pain, SOB Time Seen by Provider: 09/07/20 09:13 Source: patient, RN notes reviewed, Vital Signs reviewed, family - Exam Limitations: no limitations - History of Present Illness Initial Comments: Patient is a 75-year-old white female who presents with complaints of palpitations and chest pain. This all started just prior to arrival. Patient was at her financial services associate yesterday who cardioverted her. Patient had been in atrial fibrillation intermittently. Patient is on Eliquis. The chest pain is pressure-like in nature. It is nonradiating. It is moderate in intensity. Chest pain resolves with rest and worsens with exertion. Timing/Duration: 1-3 hours Severity: moderate Location: substernal Activities at Onset: none Prior Chest Pain/Cardiac Workup: other - Seen by her financial services associate yesterday and was cardioverted. Improving Factors: rest Worsening Factors: movement Nitro Today/Relief: no nitro taken today Aspirin Treatment Today: no aspirin today Associated Symptoms: chest pain, malaise, weakness Allergies/Adverse Reactions: Allergies Cefdinir Allergy (Verified 09/07/20 09:26) Iodine Allergy (Verified 06/01/17 23:00) Pantoprazole [From Protonix] Allergy (Verified 06/01/17 23:00) Home Medications: Ambulatory Orders Losartan Potassium & Hydrochlo [Losartan Potassium/Hydroc 50-12.5 mg] 50 mg PO DAILY 09/18/15 Metoprolol Tartrate 50 mg PO DAILY 09/18/15 Multiple Minerals W/ Vitamins [Citracal Plus] 1 tab PO DAILY 09/18/15 Omeprazole [Prilosec Cap] 20 mg PO DAILY 09/18/15 Probiotic Product [Probiotic] 1 tab PO DAILY 09/18/15 Apixaban [Eliquis] 2.5 mg BID 11/30/19 Calcium Carbonate-Cholecalcife [Calcium + D] 1 tab PO DAILY 09/07/20 Flecainide [Tambocor] 100 mg PO BID 09/07/20 Hydrochlorothiazide 12.5 mg PO DAILY 09/07/20 l-Methylfolate W/ Vitamin B6-V [Foltanx 3-35-2 mg] 1 tablet PO DAILY 09/07/20 Review of Systems - Review of Systems Constitutional: States: see HPI, malaise, weakness. Denies: chills, fever EENTM: States: no symptoms reported. Denies: eye pain, double vision Respiratory: States: no symptoms reported. Denies: cough, short of breath, wheezing Cardiology: States: see HPI, chest pain, palpitations. Denies: syncope Gastrointestinal/Abdominal: States: no symptoms reported. Denies: abdominal pain, diarrhea, nausea, vomiting Genitourinary: States: no symptoms reported. Denies: dysuria, frequency Musculoskeletal: States: no symptoms reported. Denies: back pain, neck pain Skin: States: no symptoms reported. Denies: change in color, rash Neurological: States: see HPI, weakness. Denies: tingling, tremors Endocrine: States: no symptoms reported Hematologic/Lymphatic: States: no symptoms reported All other Systems: No Change from Baseline Past Medical History (General) - Patient Medical History Hx Stroke: No Hx Asthma: No Hx Cardiac Disorders: Yes - afib Hx Congestive Heart Failure: No Hx Hypertension: Yes Hx Diabetes: No Hx Gastroesophageal Reflux: Yes Hx Cancer: Yes - melanoma-toe Hx MRSA: No Surgical History: no surgical history - Vaccination History Hx Influenza Vaccination: Yes Hx Pneumococcal Vaccination: Yes - Social History Hx Tobacco Use: No Hx Chewing Tobacco Use: No Hx Alcohol Use: No Hx Substance Use: No Hx Substance Use Treatment: No Hx Depression: No - Activities of Daily Living Hospice Agency (if applicable):: None - Female History Patient : No Family Medical History - Family History Father Family History: Unknown Hx Family Cancer: Yes - pancreas-mom;prostate dad Physical Exam - Physical Exam General Appearance: Alert, Anxious, Obvious distress, Well Developed, Well Groomed, Well Hydrated, Well Nourished Eyes, Ears, Nose, Throat Exam: PERRL/EOMI, normal ENT inspection, pharynx normal Neck: non-tender, full range of motion, supple, normal inspection Respiratory: chest non-tender, lungs clear, normal breath sounds, no respiratory distress, no accessory muscle use Cardiovascular/Chest: normal peripheral pulses, no edema, no gallop, no JVD, no murmur, tachycardia Peripheral Pulses: radial,right: 2+, radial,left: 2+ Gastrointestinal/Abdominal: normal bowel sounds, non tender, soft Extremity: normal range of motion, non-tender, normal inspection Neurologic: information management manager II-XII nml as tested, no motor/sensory deficits, alert, normal mood/affect Skin Exam: warm/dry, pallor Lymphatic: no adenopathy Progress - Progress Progress: Differential diagnosis: Acute IN, unstable angina, palpitations, atrial fibrillation with rapid ventricular response among others. 09/07/20 11:23 Patient's blood pressure and heart rate have come down with labetalol. I have discussed this patient's care, lab results, EKGs and chest x-ray with her financial services associate, Dr. Felix, and he requests patient be transferred to [facility] for admission. I discussed this plan of care with the patient and her and they voiced understanding and agreement. Patient continues to have chest pain with exertion, but the chest pain is resolved with rest. Concerning for unstable angina. Plan on transfer at this time. Alli Hernández M.D. #[id number] - Results/Orders Results/Orders: 09/07/20 09:16 Sodium Chloride 0.9% (Flush) [Saline Flush Syringe] 3 ml IV PRN PRN URINALYSIS Stat 09/07/20 09:18 IV Care:Saline Lock per Protoc QSHIFT Telemetry ONCE 09/07/20 09:30 EKG STAT 09/08/20 09:00 Pulse Ox Daily Laboratory Results - last 24 hr 09/07/20 09/07/20 09:30 09:30 WBC 7.1 RBC 4.27 Hgb 12.4 Hct 36.7 MCV 85.9 MCH 29.0 MCHC 33.8 RDW 15.5 H Plt Count 354 MPV 7.3 L Absolute Neuts (auto) 4.80 Absolute Lymphs (auto) 1.50 Absolute Monos (auto) 0.60 Absolute Eos (auto) 0.20 Absolute Basos (auto) 0.10 Neutrophils % 66.7 Lymphocytes % 21.1 Monocytes % 8.4 Eosinophils % 3.0 Basophils % 0.8 PT 11.6 H INR 1.17 H PTT (SP) 27.3 Sodium 138 Potassium 3.6 Chloride 105 Carbon Dioxide 21 Anion Gap 15.6 BUN 19 H Creatinine 1.19 BUN/Creatinine Ratio 16.0 Random Glucose 152 H Serum Osmolality 280.9 Calcium 9.0 Magnesium 1.6 L Total Bilirubin 1.0 Direct Bilirubin 0.1 Indirect Bilirubin 0.9 H AST 25 ALT 15 Alkaline Phosphatase 91 Creatine Kinase 105 CK-MB (CK-2) 1.7 CK-MB (CK-2) % Not Reportable Troponin I < 0.02 Serum Total Protein 7.3 Albumin 3.8 EKG performed 07 September 2020 at 0910 hrs.: Sinus tachycardia with second-degree AV block (Mobitz 1) at [address] changes. Abnormal EKG. No comparison EKG available at this time. EKG performed on 07 September 2020 at 0943 hrs.: Sinus rhythm with first-degree AV block with premature supraventricular complexes at 90 bpm, nonspecific ST and T wave changes, abnormal EKG. EXAM DESCRIPTION: Chest,1 View CLINICAL HISTORY: 75 years Female, chest pain COMPARISON: November 30, 2019 TECHNIQUE: AP portable chest. FINDINGS: Fair expansion of the lungs is evident without consolidation, layering effusion, or large mass. Mildly elevated right hemidiaphragm incidentally noted. Mild cardiomegaly with tortuous aortic arch with upper normal vascularity. No gross bony, hilar, or mediastinal abnormalities are noted. IMPRESSION: No acute c ardiopulmonary disease. Electronically signed by: Uli Lemos MD 09/07/2020 9:34 AM Vital Signs 09/07/20 09/07/20 09/07/20 09:07 09:26 10:07 Temperature 96.2 F L 96.2 F L Pulse Rate [ 159 H 83 brachial] Respiratory 22 20 Rate Blood Pressure 151/81 153/93 [Right Arm] O2 Sat by Pulse 98 98 97 Oximetry 09/07/20 10:36 Temperature Pulse Rate [ 84 brachial] Respiratory 18 Rate Blood Pressure 154/84 [Right Arm] O2 Sat by Pulse 98 Oximetry Departure - Departure Clinical Impression: Unstable angina, Palpitations, Abnormal EKG Time of Disposition: 11:25 Disposition: Transfer to Hospital Condition: Good Departure Forms: ED Discharge - Pt. Copy, Patient Portal Self Enrollment Diet: resume usual diet Activity: increase activity as tolerated Referrals: Uli Murillo MD [Primary Care Provider] - 1-2 Weeks Home Medications: Ambulatory Orders Losartan Potassium & Hydrochlo [Losartan Potassium/Hydroc 50-12.5 mg] 50 mg PO DAILY 09/18/15 Metoprolol Tartrate 50 mg PO DAILY 09/18/15 Multiple Minerals W/ Vitamins [Citracal Plus] 1 tab PO DAILY 09/18/15 Omeprazole [Prilosec Cap] 20 mg PO DAILY 09/18/15 Probiotic Product [Probiotic] 1 tab PO DAILY 09/18/15 Apixaban [Eliquis] 2.5 mg BID 11/30/19 Calcium Carbonate-Cholecalcife [Calcium + D] 1 tab PO DAILY 09/07/20 Flecainide [Tambocor] 100 mg PO BID 09/07/20 Hydrochlorothiazide 12.5 mg PO DAILY 09/07/20 l-Methylfolate W/ Vitamin B6-V [Foltanx 3-35-2 mg] 1 tablet PO DAILY 09/07/20 Transfer to Outside Facility - Transfer Information Decision to Transfer Date: 09/07/20 Decision to Transfer Time: 10:30 Reason for Transfer: required specialist not available Accepting Facility: [facility]
[2020-09-07 11:50] VITALS: BP 154/86; TEMP 97.7
== END 2020-09-07 11:47 | disposition short-term general hospital (02) ==
LOC: ER 09:07
DX: I20.0 Unstable angina (principal); R00.2 Palpitations; R94.31 Abnormal electrocardiogram [ECG] [EKG]; I44.0 Atrioventricular block, first degree; I49.3 Ventricular premature depolarization; I48.91 Unspecified atrial fibrillation; R53.1 Weakness; I10 Essential (primary) hypertension; K21.9 Gastro-esophageal reflux disease without esophagitis; Z85.820 Personal history of malignant melanoma of skin; Z79.899 Other long term (current) drug therapy; Z88.8 Allergy status to other drugs, medicaments and biological substances; Z91.041 Radiographic dye allergy status; Z79.01 Long term (current) use of anticoagulants
CPT/HCPCS: 36415; 71045; 80048; 80076; 82550; 82553; 84484; 85025; 85610; 85730; 93005; 94760; A4216

== ENCOUNTER → 2020-09-15 | Outpatient (CLI) | payer MEDICARE ==
--- NOTE | 2020-09-17 16:25 | US ---
EXAM DESCRIPTION: Soft Tissue,Extremity: ULTRASOUND. CLINICAL HISTORY: 75 years Female LOCALIZED SWELLING MASS AND LUMP LEFT UPPER LIMB COMPARISON: None Available. TECHNIQUE: Transcutaneous scanning: Isbell-scale and Doppler modes. FINDINGS: Scanning of the posterior aspect of the left arm over the palpable region. Encapsulated mass within capsule slightly more echogenic than the surrounding fatty adipose tissue especially centrally. Dimensions are 1.8 x 1.4 x 1.1 cm with parallel orientation. Nonvascular. No cyst, no fluid collection, or large calcifications. 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 Electronically signed by: Alon Ogden MD 09/17/2020 4:24 PM CDT
== END ==
LOC: US 11:00
PROVIDERS: ATTEND Family Medicine
DX: R22.32 Localized swelling, mass and lump, left upper limb (principal)

== ENCOUNTER → 2020-10-12 | Outpatient (CLI) | payer MEDICARE | LOC: GMAM 16:59 | PROVIDERS: ATTEND Family Medicine | DX: I47.9 Paroxysmal tachycardia, unspecified (principal); I10 Essential (primary) hypertension ==